=== PATIENT | female | born 1980 | race Caucasian/White ===

== ENCOUNTER → 2016-11-24 | Outpatient (CLI) | payer BC, OTHER ==
[~2016-11-24] MED LIST: PRENTAB26 PO
[2016-11-24 18:12] LABS: URINE APPEARANCE CLEAR (CLEAR); URINE BILIRUBIN NEG (NEG); URINE COLOR YELLOW; URINE EPITHELIAL CELL AUTO 20-30 /lpf (0-5); URINE NITRITE NEG (NEG); URINE SPECIFIC GRAVITY 1.009 (1.000-1.030); UROBILINOGEN NEG (NEG)
[2016-11-24 18:24] LABS: MANUAL MICROSCOPIC REQUIRED? NO; REVIEW REQ? NO
== END | disposition home or self-care (01) ==
LOC: C.LABSPEC 17:20
PROVIDERS: ATTEND Obstetrics & Gynecology
DX: O99.330 Smoking (tobacco) complicating pregnancy, unspecified trimester (principal)

== ENCOUNTER → 2016-12-09 | Outpatient (CLI) | payer BC, OTHER ==
[2016-12-09 17:19] LABS: BASO % 0.3 %; BASO ABS # 0.03 K/uL (0-0.2); COMPLETE YES; EOS % 1.9 %; HEMATOCRIT 39.5 % (37-47); IG% 0.2 %; LYMPH % 24.4 %; LYMPH ABS # 2.63 K/uL (1.2-3.4); MEAN CORPUSCULAR HEMOGLOBIN 27.4 pg (25-34); MEAN CORPUSCULAR HGB CONC 34.7 g/dl (32-36); MEAN PLATELET VOLUME 9.9 fL (7.4-10.4); MONO % 5.9 %; NEUT % 67.3 %; PLATELET COUNT 329 K/uL (130-400); WHITE BLOOD COUNT 10.78 K/uL (4.8-10.8)
== END | disposition home or self-care (01) ==
LOC: C.LAB1850 16:28
PROVIDERS: ATTEND Obstetrics & Gynecology
DX: O09.529 Supervision of elderly multigravida, unspecified trimester (principal); Z3A.00 Weeks of gestation of pregnancy not specified

== ENCOUNTER → 2016-12-09 | Outpatient (CLI) | payer BC, OTHER ==
[2016-12-14 04:24] LABS: CHLAMYDIA TRACH RNA*** NOT DETECTED (NOT DETECTED); GC (NEIS GONORRHOEAE)RNA** NOT DETECTED (NOT DETECTED)
== END | disposition home or self-care (01) ==
LOC: C.LABSPEC 17:52
PROVIDERS: ATTEND Obstetrics & Gynecology
DX: O09.529 Supervision of elderly multigravida, unspecified trimester (principal); Z3A.00 Weeks of gestation of pregnancy not specified

== ENCOUNTER → 2017-01-20 | Outpatient (CLI) | payer BC, OTHER ==
[2017-01-20 18:35] LABS: GTGD 50 Grams
== END | disposition home or self-care (01) ==
LOC: C.LAB1850 15:31
PROVIDERS: ATTEND Obstetrics & Gynecology
DX: O09.529 Supervision of elderly multigravida, unspecified trimester (principal)

== ENCOUNTER → 2017-01-25 | Outpatient (CLI) | payer BC, OTHER | END | disposition home or self-care (01) | LOC: C.LAB1850 07:51 | PROVIDERS: ATTEND Obstetrics & Gynecology | DX: O09.529 Supervision of elderly multigravida, unspecified trimester (principal) ==

== ENCOUNTER → 2017-04-18 | Outpatient (CLI) | payer BC, OTHER ==
[2017-04-18 11:26] LABS: URINE APPEARANCE CLEAR (CLEAR); URINE BILIRUBIN NEG (NEG); URINE COLOR YELLOW; URINE EPITHELIAL CELL AUTO >30 /lpf (0-5); URINE NITRITE NEG (NEG); URINE PH 7.5 (4.5-7.5); URINE SPECIFIC GRAVITY 1.016 (1.000-1.030); UROBILINOGEN NEG (NEG)
[2017-04-18 11:38] LABS: MANUAL MICROSCOPIC REQUIRED? NO; REVIEW REQ? NO
== END | disposition home or self-care (01) ==
LOC: C.LABSPEC 11:01
PROVIDERS: ATTEND Obstetrics & Gynecology
DX: O09.529 Supervision of elderly multigravida, unspecified trimester (principal); Z3A.00 Weeks of gestation of pregnancy not specified

== ENCOUNTER → 2017-04-25 | Outpatient (CLI) | payer BC, OTHER ==
[2017-04-25 09:38] LABS: HEMATOCRIT 35.7 % (37-47)
== END | disposition home or self-care (01) ==
LOC: C.LAB1850 08:39
PROVIDERS: ATTEND Obstetrics & Gynecology
DX: O09.529 Supervision of elderly multigravida, unspecified trimester (principal)

== ENCOUNTER 2017-06-28 10:31 | Outpatient (CLI) | payer BC, OTHER | END 2017-06-28 12:27 | disposition home or self-care (01) | LOC: C.LD 10:31 → C.OPB 10:31 → EDSTATUS 07-02 10:33 | PROVIDERS: ATTEND Obstetrics & Gynecology | DX: O62.9 Abnormality of forces of labor, unspecified (principal); Z3A.39 39 weeks gestation of pregnancy ==

== ENCOUNTER 2017-06-30 00:40 | Inpatient (IN) | payer BC, OTHER ==
[~2017-06-30] VITALS: Ht 170.2 cm; Wt 95.0 kg
[2017-06-30] VITALS (7 sets, daily range): BP systolic 116–163; BP diastolic 72–82; PULSE 68–99; TEMP 36.4–37.3; O2SAT 97–98; Ht 170.2 cm; Wt 95.0 kg
[2017-06-30] MEDS ORDERED: FENTANYL CITRATE INJ 50 MCG/1 ML 2 ML VIAL ONE (01:03)
[2017-06-30] MEDS ORDERED: LACTATED RINGER'S 1000ML 1,000 ML IV SCH (01:08)
[2017-06-30] MEDS ORDERED: DIPHTHERIA/TETANUS/PERTUSSIS 0.5 ML SYR/VIAL IM. ONE (01:15)
[2017-06-30] MEDS ORDERED: OXYTOCIN INJ 10 UNITS/ML VIAL IM ONE (01:15)
[2017-06-30] MEDS ORDERED: HYDROCORTISONE ACETATE 25 MG SUPP PR PRN (01:15)
[2017-06-30] MEDS ORDERED: SUPERCREAM 0.870 % 15GM JAR EXT PRN (01:15)
[2017-06-30] MEDS ORDERED: LANOLIN OINT EXT PRN ×2 (01:15)
[2017-06-30] MEDS ORDERED: BENZOCAINE 20% AER SPR 82.5 GM CAN EXT PRN (01:15)
[2017-06-30] MEDS ORDERED: ACETAMINOPHEN 325 MG TAB PO PRN (01:15)
[2017-06-30] MEDS ORDERED: OXYCODONE/ACETAMINOPHEN 5-325 TAB PO PRN (01:15)
[2017-06-30] MEDS ORDERED: OXYTOCIN 30 UNITS/500ML NSS IV ONE (01:28)
--- NOTE | 2017-06-30 01:45 | DELIVERY SUMMARY ---
DATE OF OPERATION: 06/30/2017 PREOPERATIVE DIAGNOSES: 1. Villarreal intrauterine at term. 2. Precipitous labor. 3. Group B strep negative. POSTOPERATIVE DIAGNOSES: Same. PROCEDURE: Spontaneous vaginal delivery occurring outside of the hospital, delivery of placenta occurring in ER and delivery of retained membranes occurring in labor and delivery. SURGEON: Baylee Choi MD, for delivery of retained membranes only. ESTIMATED BLOOD LOSS: Unable to estimate as I was not present for delivery of the fetus or placenta. However, ER staff support report what appears to be a normal amount of blood loss and lochia at this time is minimal. COMPLICATIONS: None. LACERATIONS: None. DISPOSITION: Stable in labor and delivery with the infant in the nursery. DESCRIPTION: Maureen Freedman is a 37-year-old G2, P1-0-0-1 known to our care practice for complicated by tobacco use and a history of a prior IUGR baby. This had been essentially uncomplicated. She was noted to be group B strep negative, Rh positive with a normal anatomy scan. The patient reports that she began to experience contractions at home. She lives in the [facility]. They dropped their existing son off with other family membranes to supervise him and then made their way to the hospital. Unfortunately, labor progressed very rapidly and she delivered the per her description into her pants in the car in the parking lot of the hospital. She was then brought to the emergency room where the was found to be vigorous and was taken in a warmer to the nursery prior to my arrival. The placenta was delivered in the ER reportedly with cord traction again prior to my arrival. As soon as I was notified that the patient was present, I immediately went to the ER. There was found to be no active bleeding or minimal active bleeding so we transferred the patient to labor and delivery for further examination. Once she was settled on labor and delivery, I did examine the fundus, uterus, perineum, cervix and vagina. There were no lacerations requiring repair. However, there was noted to be a significant amount of amniotic membrane present in the vagina. This was gently grasped and teased out in several large pieces. To the best of my ability, I was able to clear what I believe is all remaining membrane. At this point, no membrane remaining protruding through the cervix into the vagina and the lochia is minimal to none. The infant is reportedly vigorous in the nursery and mother is in excellent condition having tolerated her delivery well. I attest to the content of the Intraoperative Record and any orders documented therein. Any exception s are noted below.
--- NOTE | 2017-06-30 01:47 | EMERGENCY ROOM VISIT NOTE ---
History Report prepared by Marley: Artis Cantrell Under the Supervision of: Dr. Pradip Huitron D.O. First contact with patient: 00:41 Stated Complaint: History of Present Illness The patient is a 37 year old female who presents to the Emergency Room with a sudden that occurred around 5 minutes prior to arrival. The patient states that she delivered the baby in the car. She says that she thinks the baby is a girl. The patient notes that the baby was 39-weeks, and was due tomorrow. There have not been any complications with this . She notes that this is her second . She says that she started having contractions 2 days ago, and the contractions got really bad a couple hours ago , so her drove her here from [place]. The patient says that she has no significant past medical history. She is a current smoker. Source of History: patient Onset: Around 5 minutes prior to arrival Position: other (vaginal) Symptom Intensity: no complications with Quality: other () Timing: other (sudden) Note: Associated symptoms: Baby is 39-weeks, due tomorrow. Review of Systems Unobtainable secondary to circumstance. Past Medical & Surgical Medical Problems: (1) 39 weeks gestation of (2) Irregular contractions (3) No chronic diseases present (4) Normal labor (5) with 39 completed weeks gestation Family History No pertinent family history Social History Smoking Status: Current Every Day Smoker Marital Status: Housing Status: lives with family Occupation Status: employed Current/Historical Medications Scheduled Multivit/Min/Iron/Fol Ac/Pren ( Vitamin), 1 TAB PO DAILY Allergies Coded Allergies: No Known Allergies (Unverified , 11/30/15) Physical Exam Vital Signs Date Time Temp Pulse Resp B/P (MAP) Pulse Ox O2 Delivery O2 Flow Rate FiO2 06/30/17 00:42 37.0 84 20 124/100 97 Physical Exam GENERAL: Laying in bed, mild distress, tearful, baby laying on mom's abdomen. EYE EXAM: Conjunctiva injected. OROPHARYNX: no exudate, no erythema, lips, buccal mucosa, and tongue normal and mucous membranes are dry NECK: supple, no nuchal rigidity, no adenopathy, non-tender LUNGS: Clear to auscultation. Normal chest wall mechanics HEART: no murmurs, S1 normal and S2 normal ABDOMEN: Fundus at height of umbilicus, slightly boggy, with minimal diffuse abdominal pain. : Umbilical cord attached to child, placenta not seen with mild venous oozing. No obvious tears UPPER EXTREMITIES: upper extremities are grossly normal. LOWER EXTREMITIES: No pitting edema. NEURO EXAM: Normal sensorium. Medical Decision & Procedures Procedure Delivery of placenta along with cutting of umbilical cord: Umbilical cord was clamped and cut. Mom tolerated procedure well. Delivery of placenta - placenta delivered with faint/gentle traction, along with massaging of fondus. Upon delivery of placenta, appears to have partially retained placenta still within the vagina. Mild venous oozing. Microfilming Document Preparer presented at bedside, patient was taken up to OB. ED Course ED COURSE: Vital signs were reviewed and showed normal vitals. The patients medical record was reviewed The above diagnostic studies were performed and reviewed. ED treatments and interventions as stated above. 0036: The patient was evaluated in room A1. A limited history and physical examination was performed. Microfilming Document Preparer was presented at bedside, and the patient was taken up to OB. Medical Decision Patient is a 37-year-old female who presents to ER who is 39 weeks . She has been having intermittent contractions since this past Tuesday. Today they worsen. They drove up from [place] she delivered in the parking lot. Upon arrival she is brought into A1. IV and labs were obtained. Initially evaluated the child and the mother. Child was still attached. The umbilical cord. The cord was clamped and cut. The placenta was delivered following massaging the fundus of the uterus. The placenta did not appear to be intact as there appeared to be the membrane still present within the vagina. Just after delivery of the placenta OB presented and patient was taken upstairs. Patient remained stable. Lab work did not result prior to this. Patient was unaware of GBS status. Patient was hemodynamically stable. Vitals were fairly normal. Patient was taken to labor and delivery for further management with mild venous oozing from the vagina still present. Medication Reconcilliation Current Medication List: was personally reviewed by me Blood Pressure Screening Patient's blood pressure: Normal blood pressure Impression Primary Impression: Vaginal delivery Scribe Attestation The scribe's documentation has been prepared under my direction and personally reviewed by me in its entirety. I confirm that the note above accurately reflects all work, treatment, procedures, and medical decision making performed by me. Departure Information Dispostion Being Evaluated By Hospitalist (taken up to OB) Referrals No Doctor, Assigned (PCP)
[2017-06-30] MEDS ORDERED: OXYTOCIN 30 UNITS/500ML NSS IV PRN (03:15)
[2017-06-30] MEDS ORDERED: FENTANYL CITRATE INJ 50 MCG/1 ML 2 ML VIAL IV ONE (06:15)
[2017-06-30] MEDS: DOCUSATE SODIUM 100 MG CAP PO SCH ×2 (07:58→20:24)
[2017-06-30] MEDS: PRENATAL VITAMIN TAB PO SCH (07:58)
[2017-06-30] MEDS: IBUPROFEN 600 MG TAB PO PRN ×3 (12:18→20:24)
[2017-07-01] MEDS: IBUPROFEN 600 MG TAB PO PRN ×2 (00:46→06:07)
[2017-07-01 06:49] LABS: HEMATOCRIT 33.6 % (37-47)
--- NOTE | 2017-07-01 07:15 | Progress Note ---
Subjective Jul 01, 2017. Subjective conversation w/ patient, physical exam, chart review, lab review Ambulation: ambulating normally Voiding: no voiding problems Passing Gas: Yes Diet Tolerance: Regular Diet Lochia: Moderate Feeding Type: Breast Feeding Pain: controlled Review of Systems Respiratory: No shortness of breath Cardiac: No chest pain Abdomen: No nausea, No vomiting Female : No dysuria Objective Vital Signs Date Time Temp Pulse Resp B/P (MAP) Pulse Ox O2 Delivery O2 Flow Rate FiO2 06/30/17 23:30 Room Air 06/30/17 23:30 36.4 73 16 116/72 (87) Room Air 06/30/17 20:25 36.7 68 20 148/82 (104) 98 Room Air 06/30/17 15:55 Room Air 06/30/17 15:45 125/78 (94) 06/30/17 15:28 37.3 80 18 163/82 (109) Room Air 06/30/17 12:25 36.7 87 20 132/82 (99) 06/30/17 08:00 36.7 79 18 131/82 (98) Room Air Physical Exam General Appearance: WELL-APPEARING, WD/WN, NO APPARENT DISTRESS Respiratory/Chest: lungs clear, normal breath sounds, no respiratory distress Cardiovascular: regular rate, rhythm, no gallop Abdomen: normal bowel sounds, soft Fundus: Firm, Tender (appropriately tender), Relation to Umbilicus (at level of U) Extremities: non-tender, normal inspection, no calf tenderness Laboratory Results Last 24 Hours Test 07/01/17 06:30 Hemoglobin 11.4 g/dL Hematocrit 33.6 % Assessment and Plan Problem List Medical Problems: (1) Vaginal delivery Status: Acute Post- Day#: 1 Continue Routine Care: Vital signs reviewed and wnl. Hgb reviewed (11.4 today). Blood type A +, GBS -, RI. Pt doing well clinically. Encourage ambulation, . Resume regular diet. Control pain with motrin/tylenol. Monitor lochia. Continue routine post care. Pt desires discharge today. Pt doing well clinically, discussed staying, and counselled on discharge instructions. PALMIRA STEVEN FMR PGY 1. Resident Physician Supervision Note: I interviewed and examined the patient. Discussed with Dr. Steven and agree with findings and plan as documented in the note. Any exceptions or clarifications are listed here: [None] Documented By: Jonathan Champagne Resident Tracking Resident Involvement: Resident Care Provided Care Provided: OB Delivery
--- NOTE | 2017-07-01 07:24 | Discharge Instructions ---
Discharge Instructions Date of Service Jul 01, 2017. Admission Reason for Admission: LABOR Discharge Discharge Diagnosis / Problem: Spontaneous vaginal delivery Discharge Goals Goal(s): Routine recovery after delivery Medications Continue Dispensed Medications: supercream, dermaplast, tucks, lansinoh Activity Recommendations Activity Limitations: per Instructions/Follow-up section . Instructions / Follow-Up Instructions / Follow-Up ACTIVITY RECOMMENDATIONS: * Gradual return to full activity over the next 2-3 weeks. * No lifting - nothing heavier than baby over the next 2-3 weeks. * Do not engage in vigorous exercise, sexual activity or sports until cleared by your physician. * Do not drive or operate any motorized equipment until cleared by your physician. * You may shower/bathe daily. MEDICATIONS: For discomfort or pain, you may use Acetaminophen (Tylenol), Ibuprofen (Advil), or Naproxen (Aleve) following the package directions. For constipation you may use Colace following the package directions. BREAST CARE: If you are not breast feeding: * Wear a supportive bra 24 hours a day for one to two weeks. * Avoid stimulating your breasts and nipples as much as possible during the first few weeks after delivery. * When taking a shower, have the warm water hit your back, not breasts. * When your breasts feel full, apply ice packs. Usually three to four times a day helps ease the discomfort. * Take a mild pain medication (Tylenol / Motrin) when you are uncomfortable. If breast feeding: * Use breast milk to lubricate nipples. Lansinoh cream may be used for sore nipples. You do not need to remove cream prior to breast feeding. If using a different brand of cream, check the label for directions regarding removal of cream prior to nursing. * Wear a supportive bra. * If having problems with breasts or breast feeding, call a library sales consultant or your health care provider. EPISIOTOMY CARE: After delivery, if you have an episiotomy (stitches), the following steps will ease discomfort and aid healing. * For the first 24 hours after delivery, place ice packs next to your episiotomy to help reduce swelling. * After the first 24 hour-period, sitz baths, either portable or in the tub, are suggested. A shower with a shower arm sprayed over the episiotomy may be comforting. * [place] care should be done after each voiding and bowel movement. Squirt warm water from a plastic bottle over the perineum (region of the body between the anus and urinary opening) and pat dry. * Use Dermoplast to ease discomfort. Shake container. [place]met[place] directly over the episiotomy. Place a Tucks on a clean sanitary pad next to your episiotomy. SPECIAL CARE INSTRUCTIONS: When you are discharged from the hospital, it is important for you to follow the instructions listed below: * During the first week at home, you should be able to care for yourself and your baby. In addition, the usual light household activities are encouraged. * Limit your activities to the way you feel. Do not try to clean the house or move furniture. Be sensible. * If you actively engage in sports and have done so up until the time of your delivery, you may resume these activities as soon as you feel able. This may take up to one month or even longer. Use good judgment. * Continue to take your vitamins for at least six weeks after the of your baby. * Your diet need not be limited unless you were on a special diet before your delivery. Breast-feeding mothers need around 2500 calories per day and at least 64-80 ounces of fluid per day (8 to 10 glasses). * You should eat foods from the four major food groups. Crash diets or fad diets are to be avoided. Eating lean meats, fresh fruits and vegetables, low-fat dairy products, high fiber foods and a regular exercise program, will help you get back to your pre- weight without putting your health at risk. * Constipation is sometimes a problem after delivery. Take a mild laxative as needed. If breast feeding, Milk of Magnesia is acceptable to use. You may use a suppository or Fleets enema if no episiotomy. * A daily shower or tub bath is suggested. Be sure to thoroughly and gently dry the perineum. * A bloody vaginal discharge will usually continue until around four weeks post . A small amount of bleeding may continue for as long as six weeks. Vaginal discharge changes from the bright red bleeding after delivery to pink then brownish and finally yellowish-pink before becoming white and disappearing. * Bleeding may increase with activity. Your first period may come in 4-8 weeks. If you are breast feeding, your period may be delayed even longer. * [place] (sex) can begin whenever both you and your partner feel comfortable and do not have any form of genital infection. It is recommended that you wait at least six weeks for internal and external healing to occur. If you have questions, please talk to your health care practitioner. A condom should be used to prevent infection and . * Foreplay, gentle intercourse and lubrication is very important the first several times to prevent pain. A water-based lubricant such as K-Y jelly or Astroglide may be used. * If you have RH negative blood and your baby is RH positive, you will receive RHOGAM by injection prior to discharge. The nurse will give you a card to keep with you that has the date and place that you received RHOGAM after delivery. * During your care, you had a Rubella screen done to check for the presence of rubella antibodies in your blood. If your test was negative, you will receive a Rubella vaccine prior to discharge. This vaccine may cause a fever, soreness at the injection site and flu-like symptoms. If these symptoms persist, notify your health care practitioner. is not advised for one month after a Rubella vaccine. * Verbalizes understanding of car seat law as reviewed with patient nursing. * Car Seat hand-out given and reviewed with patient by nursing. * Shaken baby information reviewed with patient by nursing. Call you doctor if: * Heavy bleeding (saturating several pads an hour) or passing clots the size of your fist. * A fever >101 degrees F (38.3 degrees C) on two occasions four hours apart and /or chills. * Unusual pain in the pelvic or vaginal areas. * "Baby Blues" lasting longer than two weeks. If you have any questions or concerns, call your health care practitioner at . FOLLOW UP VISIT: * Please call the office at to schedule a 6 week examination. It is important you keep this appointment. It is important for you to make arrangements for either yearly or twice yearly check-ups thereafter. Current Hospital Diet Patient's current hospital diet: Regular OB Diet Discharge Diet Recommended Diet: Regular Diet Pending Studies Studies pending at discharge: no Medical Emergencies . Who to Call and When: Medical Emergencies: If at any time you feel your situation is an emergency, please call 911 immediately. . Non-Emergent Contact Non-Emergency issues call your: Primary Care Provider . . "Provider Documentation" section prepared by Ira Steven. . VTE Core Measure Inpt VTE Proph given/why not?: Treatment not indicated
[2017-07-01 08:00] VITALS: BP 130/84; PULSE 70; TEMP 36.8
[2017-07-01] MEDS ORDERED: NICOTINE 14 MG/24 HR TDSY TD SCH (08:00)
[2017-07-01] MEDS: DOCUSATE SODIUM 100 MG CAP PO SCH (08:07)
[2017-07-01] MEDS: PRENATAL VITAMIN TAB PO SCH (08:07)
[2017-07-01 12:00] VITALS: BP_DIAS 84; PULSE 70; TEMP 36.8
== END 2017-07-01 12:00 | disposition home or self-care (01) | DRG 775 ==
LOC: EDBD 00:40 → C.EDA 00:41 → C.LD 00:58 → C.OBG 04:19
PROVIDERS: ADMIT Obstetrics & Gynecology; ATTEND Obstetrics & Gynecology
PROC: 10E0XZZ Delivery of Products of Conception, External Approach (ICD-10-PCS; principal; 2017-06-30)
DX: Z39.0 Encounter for care and examination of mother immediately after delivery (principal); F17.200 Nicotine dependence, unspecified, uncomplicated

== ENCOUNTER 2019-07-15 22:55 | Inpatient (IN) ==
[2019-07-16] MEDS ORDERED: LACTATED RINGER'S 1,000 ML IV PRN (04:06)
[2019-07-16] MEDS ORDERED: OXYTOCIN 30 UNITS/500 ML BAG IV PRN ×2 (04:06→05:01)
[2019-07-16 04:42] LABS: Hematocrit (blood only) 41.4 % (37-47); Hemoglobin 14.4 g/dL (12.0-16.0); Mean Corpuscular Hemoglobin 29.1 pg (25-34); Mean Corpuscular Hgb Conc 34.8 g/dL (32-36); Mean Corpuscular Volume 83.8 fL (80-100); Platelet Count 277 K/uL (130-400); RDW Coefficient of Variation 14.1 % (11.5-14.5); Red Blood Count 4.94 M/uL (4.2-5.4); White Blood Count 13.51 K/uL (4.8-10.8)
--- NOTE | 2019-07-16 04:53 | History & Physical Report ---
Date of Service July 16, 2019 Assessment & Plan (1) with 38 completed weeks gestation: Will walk and monitor. Given prior history, want to make sure give her plenty of time. Fetus reassuring. (2) Normal labor: History of Present Illness Chief Complaint: contractions Primary Care Provider: NO PCP Patient is a 39yowf with iup at 38 6/7 weeks who presents to labor and delivery with contractions. no lof/vb. +fm. Patient's last delivery was in the car in the parking lot, so she is nervous about going home. complicated by ama with normal testing. labs--A+/ab-/pap nl/ri/rprnr/hepb-/hiv-/gc/ct-/declined cf/sma/ gtt x 2 nl/declined genetics Allergies Allergy/AdvReac Type Severity Reaction Status Date / Time No Known Drug Allergies Allergy Verified 07/11/19 15:52 Home Medications Home Medications Medication Instructions Recorded Confirmed Type prenat.vits,susie,tgz-kmap-dxrik 1 tab PO DAILY 03/20/19 07/11/19 History hydrocortisone 2.5 % topical cream 1 appln [place] DAILY PRN 90 Days #28 gm 06/26/19 07/11/19 Rx with perineal applicator Patient History Medical History (Updated 07/16/19 @ 04:52 by Julissa Caceres MD, FACOG) Abnormal biochemical finding on screening of mother Hx of contraceptive use Hx of varicella Surgical History (Updated 03/20/19 @ 11:46 by Dianne Grullon) Hx of oral surgery tooth extraction Family History (Updated 03/20/19 @ 11:51 by Dianne Grullon) Father Hypertension Aunt Breast cancer maternal Mother Celiac disease Throat cancer Social History (Updated 03/20/19 @ 11:53 by Dianne Grullon) Preferred Language: Ethiopian Communication Ability: Effective Beliefs That Will Affect Care: None marital status: Current Living Situation: Spouse and Family Other Information That Helps Us Care for You: No Feels Safe at Home: Yes Safety Concerns: Feels Safe At This Time Smoking Status: Former smoker Tobacco Type: cigarettes ; packs per day: 1 ; Cigarettes Per Day: 20 ; Do You Dip or Chew Tobacco: No ; Second Hand Exposure: No ; Tobacco Cessation Education Requested by Patient: No Hx Alcohol Use: No Hx Substance Use: No Review of Systems All systems reviewed & are unremarkable except as noted in HPI & below Physical Exam Constitutional: WD/WN, vitals as above Gastrointestinal (Abdomen): soft, nt, nd, gravid Psychiatric: A+Ox3, euthymic affect Genitourinary: cx--3+/80/-2/post toco--q5-7min efm--category one Results & Data Vital Signs (Past 12 Hours) Vital Signs Temp Pulse Resp BP 07/16/19 04:43 76 137/91 07/16/19 03:25 36.9 C 70 20 133/70 07/15/19 23:32 82 129/67 07/15/19 23:23 96 H 134/80 07/15/19 23:13 91 H 135/64 07/15/19 23:02 36.7 C 98 H 18 170/93 H
--- NOTE | 2019-07-16 04:56 | Delivery Summary ---
Vaginal Delivery Summary Date of Service July 16, 2019 Vaginal Delivery Summary Pre-operative Diagnosis: at 38 6/7 weeks normal labor Post-operative Diagnosis: same Procedure: EBL: 300cc Anesthesia: none Procedure: Patient called out to note rom, clear. She then progressed very quickly from 6 cm to 10 cm. The patient pushed x 1 to deliver a viable female in luis position. the rest of the was then delivered without difficulty. The baby was vigorous. The nose and mouth were again bulb suctioned and the infant was placed in the maternal abdomen for drying and attention. Cord was clamped and cut at one minute of life. Cord blood and segment obtained. Placenta delivered spontaneous, intact with a three vessel cord. Cervix/sulci/rectum were intact. A small perineal laceration was repaired with one figure of eight suture. Hemostasis obtained with dilute pitocin and fundal massage. Apgars were 8/9. Mother and baby doing well at the end of the delivery. [facility] Vaginal Delivery Charge Vaginal Delivery Codes: 49505 global code for the antepartum, delivery, and post-
[2019-07-16] MEDS ORDERED: IBUPROFEN 600 MG TAB PO ONE (04:59)
[2019-07-16] MEDS ORDERED: DIPHTHERIA/TETANUS/PERTUSSIS 0.5 ML SYR/VIAL IM ONE (05:01)
[2019-07-16] MEDS ORDERED: bisacodyL 10 MG SUPP PR PRN (05:01)
[2019-07-16] MEDS ORDERED: OXYCODONE/ACETAMINOPHEN 5mg/325mg TAB PO PRN (05:01)
[2019-07-16] MEDS ORDERED: HYDROCORTISONE ACETATE 25 MG SUPP PR PRN (05:01)
[2019-07-16] MEDS ORDERED: SUPERCREAM 0.870% 15 GM JAR EXT PRN (05:01)
[2019-07-16] MEDS ORDERED: ACETAMINOPHEN 325 MG TAB PO PRN (05:01)
[2019-07-16] MEDS ORDERED: BENZOCAINE 20% AER SPR 82.5 GM CAN EXT PRN (05:01)
[2019-07-16] MEDS: NICOTINE 21 MG/24 HR TDSY TD SCH (06:06)
[2019-07-16] MEDS: IBUPROFEN 600 MG TAB PO PRN ×3 (09:48→21:01)
[2019-07-16] MEDS: PRENATAL VITAMIN 1 TAB PO SCH (09:48)
[2019-07-16] MEDS: DOCUSATE SODIUM 100 MG CAP PO SCH ×2 (09:48→21:01)
--- NOTE | 2019-07-17 06:00 | Obstetrical Progress Note ---
Date of Service <Andres Andrade MD - Last Filed: 07/17/19 06:45> July 17, 2019 Assessment & Plan <Andres Andrade MD - Last Filed: 07/17/19 06:45> (1) : PPD #1 doing well, voiding well, ambulating well continue routine care until discharge after discharge will have follow-up in 6 weeks Subjective <Andres Andrade MD - Last Filed: 07/17/19 06:45> Ms. Freedman is a 39 y/o female ; PPD #1 following spontaneous vaginal delivery at 38+ weeks; doing well this morning; having minimal abdominal cramping/pain; voiding well; tolerating meals overnight; and able to ambulate some; some persistent spotting with intermittent improvement this morning. Review of Systems Constitutional: denies fever; chills; sweats; headache Respiratory: denies shortness of breath, difficulty breathing Cardiac: denies chest pain; palpitations; chest pressure Breast: denies breast pain : denies dysuria Physical Exam <Andres Andrade MD - Last Filed: 07/17/19 06:45> General: alert; oriented; no acute distress Cardiac: RRR; no m/g/r Respiratory: CTAB a/p; no wheezes/rales/rhonchi; no increased work of breathing; symmetrical chest rise; no respiratory distress Abdomen: soft; NT/ND; bowel sounds positive Uterus: uterine fundus firm; palpable 3cm below umbilicus Lower extrem: no lower extremity edema or swelling; no deep calf pain; Sammy's sign negative b/l Results & Data <Andres Andrade MD - Last Filed: 07/17/19 06:45> Vital Signs (Past 12 Hours) Vital Signs Temp Pulse Resp BP Pulse Ox 07/17/19 04:05 36.6 C 85 18 133/75 07/17/19 00:05 36.7 C 85 18 139/78 07/16/19 19:50 36.8 C 80 18 145/74 H 97 Laboratory Results 07/17/19 Range/Units 06:25 Hgb 13.0 (12.0-16.0) g/dL Hct 39.1 (37-47) % Medications Administered Current Inpatient Medications Acetaminophen (Tylenol) 650 mg PO Q6H PRN PRN Reason: Pain/SIEGEL/Fever Stop: 08/15/19 05:00 Benzocaine (Dermoplast Pain Relieving [place]) 1 appln EXT PRN PRN PRN Reason: Perineal Discomfort Stop: 08/15/19 05:00 Last Admin: 07/16/19 09:47 Dose: 1 appln Documented by: Bisacodyl (Dulcolax) 5 mg PO 2000 [facility] [place] Stop: 07/17/19 20:01 Bisacodyl (Dulcolax) 10 mg [place] DAILY PRN PRN Reason: No BM on 2nd post- day Stop: 08/15/19 05:00 Cocaine HCl (Supercream 0.870%) 1 gm EXT BID PRN PRN Reason: Hemorrhoidal Inflammation Stop: 07/30/19 05:00 Last Admin: 07/16/19 13:34 Dose: 1 appln Documented by: Docusate Sodium (Colace) 100 mg PO DAILY@08,21 [facility] [place] Stop: 08/15/19 07:59 Last Admin: 07/16/19 21:01 Dose: 100 mg Documented by: Hydrocortisone (Anusol Hc) 25 mg [place] BID PRN PRN Reason: Hemorrhoidal Inflammation Stop: 08/15/19 05:00 Oxytocin (Pitocin) 30 units in 500 mls @ 333.333 mls/hr IV .Q1H30M PRN; Protocol PRN Reason: Bleeding Control Stop: 08/15/19 05:00 Last Titration: 07/16/19 05:15 Dose: Infused Documented by: Ibuprofen (Motrin) 600 mg PO Q4H PRN PRN Reason: Pain/SIEGEL/Cramping/Fever Stop: 08/15/19 05:00 Last Admin: 07/16/19 21:01 Dose: 600 mg Documented by: Miscellaneous (Remove Nicoderm Patch) 1 ea N/A DAILY@0859 [facility] Stop: 08/16/19 08:58 Nicotine (Nicoderm Cq) 21 mg TD QAM [facility] [place] Stop: 08/15/19 08:59 Last Admin: 07/16/19 06:06 Dose: 21 mg Documented by: Oxycodone/Acetaminophen (Percocet 5mg/325mg) 1 tab PO Q4H PRN PRN Reason: Pain not relieved by... Stop: 07/30/19 05:00 Prenat Multivit/[place]/Iron/Folic Ac ( Vitamin) 1 tab PO DAILY@08 [facility] Stop: 08/15/19 07:59 Last Admin: 07/16/19 09:48 Dose: 1 tab Documented by: <Robi Powers Jr, MD, FACOG - Last Filed: 07/17/19 07:45> Co-Signing Physician Notes Resident Physician Supervision Note: I was present with Dr. Andrade during the history and exam. I discussed the case with the resident and agree with the findings and plan as documented in the note. Any exceptions or clarifications are listed here: Patient desires d/c, instructions given, f/u in 6 weeks PP check. Documented By: Robi Powers Jr, MD, FACOG Resident Activity Tracking <Andres Andrade MD - Last Filed: 07/17/19 06:45> Resident Involvement: Resident Care Provided Care Provided: OB Delivery
[2019-07-17 06:41] LABS: Hematocrit (blood only) 39.1 % (37-47)
[2019-07-17] MEDS: PRENATAL VITAMIN 1 TAB PO SCH (08:46)
[2019-07-17] MEDS: DOCUSATE SODIUM 100 MG CAP PO SCH (08:46)
[2019-07-17] MEDS: NICOTINE 21 MG/24 HR TDSY TD SCH (08:46)
[2019-07-17] MEDS: IBUPROFEN 600 MG TAB PO PRN (08:47)
[2019-07-17] MEDS ORDERED: bisacodyL 5 MG TABEC PO SCH (20:00)
== END 2019-07-17 09:42 | disposition home or self-care (01) | DRG 807 ==
LOC: OPB 22:55 → 4S1 22:56 → 4S2 07-16 07:48